=== PATIENT | male | born 1965 | race Caucasian/White ===

== ENCOUNTER 2018-08-17 17:19 | Emergency (ER) | payer BC, OTHER ==
[2018-08-17] MEDS ORDERED: Take Home: Acetaminophen/HYDROcodone 325-5 MG, 5 Tab Pack PO ONE (17:34)
[2018-08-17] MEDS ORDERED: Sodium Chloride 0.9% 10 ML Syringe FLUSH PRN (17:34)
[2018-08-17] MEDS ORDERED: Ondansetron 4 MG/2 ML SDV IVPUSH ONE (17:34)
--- NOTE | 2018-08-17 17:46 | EDM.PDOC ---
ED HPI GENERAL MEDICAL PROBLEM - General Chief Complaint: Upper Extremity Injury/Pain Stated Complaint: Neck and right shoulder pain; fall on ice Time Seen by Provider: 08/17/18 17:23 Source of Information: Reports: Patient, Old Records, RN, RN Notes Reviewed History Limitations: Reports: No Limitations - History of Present Illness INITIAL COMMENTS - FREE TEXT/NARRATIVE: Patient presents to the ED at [facility] for the evaluation of right neck and right shoulder pain after he slipped and fell on the ice. This is not a work related injury. He denies any LOC. No head injury or trauma. Patient states it is difficulty to turn his head to the right. He denies any numbness, tingling, or paresthesia to the right upper extremity. He denies any previous injury or trauma. He has full ROM of the RUE but it is painful. Denies any back pain. No pelvic or abdominal pain. Patient denies any radiation of the pain. Onset: Today, Sudden Onset Date: 08/17/18 Right Neck Pain Score (Numeric/FACES): 8 - Related Data Allergies Allergy/AdvReac Type Severity Reaction Status Date / Time coconu Allergy Rash Uncoded 06/30/17 08:59 dilates the eyes Allergy Other Uncoded 06/30/17 08:59 Home Meds: Home Meds metFORMIN [Glucophage] 500 mg PO BID 06/17/14 [History] traZODone HCl [Trazodone HCl] 50 mg PO 08/17/18 [History] Past Medical History Cardiovascular History: Reports: Afib, High Cholesterol, Hypertension Endocrine/Metabolic History: Reports: Diabetes, Type II Oncologic (Cancer) History: Reports: Other (See Below) Other Oncologic History: leg tumor - Past Surgical History GI Surgical History: Reports: Appendectomy Review of Systems - Review of Systems Review Of Systems: See Below Constitutional: Denies: Chills, Fever Respiratory: Denies: Shortness of Breath, Cough Cardiovascular: Denies: Chest Pain, Palpitations GI/Abdominal: Reports: Nausea. Denies: Abdominal Pain, Vomiting Musculoskeletal: Reports: Neck Pain, Shoulder Pain, Muscle Pain, Muscle Stiffness. Denies: Arm Pain, Back Pain Skin: Reports: No Symptoms Neurological: Denies: Dizziness, Headache, Numbness, Paresthesia, Tingling ED EXAM, GENERAL - Physical Exam Exam: See Below Exam Limited By: No Limitations General Appearance: Alert, No Apparent Distress Neck: Limited Range of Motion, Tender Lateral (Right) Respiratory/Chest: No Respiratory Distress, Lungs Clear, Normal Breath Sounds Cardiovascular: Normal Peripheral Pulses, Regular Rate, Rhythm Peripheral Pulses: 2+: Radial (L), Radial (R) GI/Abdominal: Normal Bowel Sounds, Soft, Non-Tender Back Exam: Normal Inspection, Full Range of Motion Extremities: Normal Capillary Refill, Limited Range of Motion (RUE 2/2 pain). No: Joint Swelling, Arm Pain Neurological: Alert, Oriented Skin Exam: Warm, Dry, Intact, Normal Color Course - Vital Signs Last Recorded V/S: Last Vital Signs Temp 35.8 C 08/17/18 17:20 Pulse 69 08/17/18 17:20 Resp 18 08/17/18 17:20 BP 151/80 H 08/17/18 17:20 Pulse Ox - Orders/Labs/Meds Orders: Active Orders 24 hr Category Date Time Status Sodium Chloride 0.9% [Saline Flush] Med 08/17/18 17:34 Active 10 ml FLUSH ASDIRECTED PRN Peripheral IV Insertion Adult [OM.PC] Routine Oth 08/17/18 17:34 Ordered Medication Orders Sodium Chloride (Saline Flush) 10 ml FLUSH ASDIRECTED PRN PRN Reason: Keep Vein Open Meds: Medications Generic Name Dose Route Start Last Admin Trade Name Freq PRN Reason Stop Dose Admin Sodium Chloride 10 ml 08/17/18 17:34 Saline Flush FLUSH ASDIRECTED PRN Keep Vein Open Discontinued Medications Generic Name Dose Route Start Last Admin Trade Name Freq PRN Reason Stop Dose Admin Hydrocodone Bitart/Acetaminophen 1 packet 08/17/18 17:34 Take Home: Acetam/Hydrocodon 325-5 Mg, 5 Pack PO 08/17/18 17:35 ONETIME ONE Ondansetron HCl 4 mg 08/17/18 17:34 08/17/18 17:52 Zofran IVPUSH 08/17/18 17:35 4 mg ONETIME ONE Administration Orphenadrine Citrate 60 mg 08/17/18 17:34 Norflex IM 08/17/18 17:35 Q12H ONE Orphenadrine Citrate 60 mg 08/17/18 17:50 08/17/18 17:53 Norflex IV 08/17/18 17:51 60 mg Q12H ONE Administration - Radiology Interpretation Free Text/Narrative:: Shoulder, Right: Negative for any acute fracture or dislocation C-Spine: No acute findings in the cervical spine See scanned report in EMR Departure - Departure Time of Disposition: 18:57 Disposition: Home, Self-Care 01 Condition: Good Clinical Impression: Muscle contusion Fall from slipping on ice Qualifiers: Encounter type: initial encounter Qualified Code(s): W00.9XXA - Unspecified fall due to ice and snow, initial encounter Right shoulder injury Qualifiers: Encounter type: initial encounter Qualified Code(s): S49.91XA - Unspecified injury of right shoulder and upper arm, initial encounter Neck strain Qualifiers: Encounter type: initial encounter Qualified Code(s): S16.1XXA - Strain of muscle, fascia and tendon at neck level, initial encounter - Discharge Information *PRESCRIPTION DRUG MONITORING PROGRAM REVIEWED*: Not Applicable *COPY OF PRESCRIPTION DRUG MONITORING REPORT IN PATIENT GUILLERMO: Not Applicable Instructions: Neck Contusion, Muscle Strain, Contusion Referrals: Laverne Koch, [Primary Care Provider] - Forms: ED Department Discharge Additional Instructions: 1. Stay well hydrated and rest 2. Use heating pad to neck/shoulder area 3. Alternate Tylenol/Advil as needed 4. Use muscle relaxers sparingly as these can make you drowsy 5. Follow up with Dr. Koch as symptoms warrant 6. Make go to work as usual - Problem List Review Problem List Initiated/Reviewed/Updated: Yes - My Orders Last 24 Hours: My Active Orders 08/17/18 17:34 Sodium Chloride 0.9% [Saline Flush] 10 ml FLUSH ASDIRECTED PRN Peripheral IV Insertion Adult [OM.PC] Routine - Assessment/Plan Last 24 Hours: My Active Orders 08/17/18 17:34 Sodium Chloride 0.9% [Saline Flush] 10 ml FLUSH ASDIRECTED PRN Peripheral IV Insertion Adult [OM.PC] Routine Assessment:: Muscle contusion Fall on ice Right Shoulder injury Right neck pain 2/2 to fall Plan: Xray and assessment discussed with patient. Will start Flexeril for muscle pain. Use heating pad. Tylenol/Advil. Recommend f/u with PCP as symptoms warrant
[2018-08-17 17:48] VITALS: BP 151/80
--- NOTE | 2018-08-17 18:54 | CR ---
[id number] RAD/RAD Shoulder Right 2V Min Exam: RAD Shoulder Right 2V Min Indication:FALL; RIGHT SHOULDER PAIN. Comparison: No prior imaging for comparison. Discussion: Negative for fracture or dislocation. Apparent linear lucency projecting over the clavicle is consistent with summation artifact from the clavicle and scapula. Mild acromioclavicular osteoarthritis. Impression: As above. Yaakov Donald MD 08/17/18 [id number] Thank you for allowing us to participate in the care of your patient.
--- NOTE | 2018-08-17 18:55 | CR ---
[id number] RAD/RAD Cervical Spine 2-3V Exam: RAD Cervical Spine 2-3V Indication:FALL; INJURY; NECK PAIN. Comparison: No prior imaging for comparison. Discussion: Vertebral bodies are in normal alignment. No radiographically evident fracture or compression deformity. Mild changes of spondylosis. Prevertebral soft tissues are normal in thickness. Lung apices are clear. Impression: No acute findings in the cervical spine. Yaakov Donald MD 08/17/18 [id number] Thank you for allowing us to participate in the care of your patient.
[2018-08-17] MEDS ORDERED: Take Home: Cyclobenzaprine 10 MG Tab, 4 Tab Pack PO ONE (19:00)
== END 2018-08-17 19:22 | disposition home or self-care (01) ==
LOC: VM.ED 17:19
DX: S16.1XXA Strain of muscle, fascia and tendon at neck level, initial encounter (principal); S49.91XA Unspecified injury of right shoulder and upper arm, initial encounter; Z91.018 Allergy to other foods; Z91.09 Other allergy status, other than to drugs and biological substances; E11.9 Type 2 diabetes mellitus without complications; Z79.84 Long term (current) use of oral hypoglycemic drugs; I10 Essential (primary) hypertension; W00.9XXA Unspecified fall due to ice and snow, initial encounter
CPT/HCPCS: 72040; 73030; 96374; 96375; 99284; A9270; J2360; J2405

== ENCOUNTER 2019-06-12 01:15 | Emergency (ER) | payer OTHER ==
[2019-06-12] MEDS ORDERED: Ondansetron 4 MG/2 ML SDV IVPUSH ONE (01:35)
[2019-06-12] MEDS ORDERED: Sodium Chloride 0.9% 10 ML Syringe FLUSH PRN (01:35)
[2019-06-12] MEDS ORDERED: HYDROmorphone 1 MG/ML Syringe IVPUSH ONE (01:36)
[2019-06-12 01:39] VITALS: BP 146/86; PULSE 92
[2019-06-12] MEDS ORDERED: Acetaminophen 500 MG Tab PO ONE (02:15)
[2019-06-12 02:20] LABS: ANION GAP 16.8 mmol/L (10-20); CHLORIDE,CL 105 mmol/L (98-107); SODIUM,NA 141 mmol/L (136-145)
--- NOTE | 2019-06-12 02:37 | EDM.PDOC ---
ED HPI GENERAL MEDICAL PROBLEM - General Chief Complaint: Trauma Stated Complaint: Injury to groin/penis Time Seen by Provider: 06/12/19 01:15 Source of Information: Reports: Patient - History of Present Illness INITIAL COMMENTS - FREE TEXT/NARRATIVE: Pt. states that he was stuck in the groin/lower abdomen by a metal frame. He was attempting to move it with a rachele system, and it swung, striking him in the groin/abdomen. He states that the discomfort was severe enough that it caused him to vomit. Initially the paint was 10/10. Denies any trauma other than to groin/abdomen. He has been able to ambulate. He has not urinated since the incident, and thus cannot assess for hematuria. Onset: Today Onset Date: 06/12/19 Location: Reports: Abdomen Quality: Reports: Ache, Throbbing Severity: Severe lower pelvis, groin, penis Pain Score (Numeric/FACES): 9 - Related Data Allergies Allergy/AdvReac Type Severity Reaction Status Date / Time coconu Allergy Rash Uncoded 06/30/17 08:59 dilates the eyes Allergy Other Uncoded 06/30/17 08:59 Home Meds: Home Meds metFORMIN [Glucophage] 500 mg PO BID 06/17/14 [History] traZODone HCl [Trazodone HCl] 50 mg PO BEDTIME 08/17/18 [History] Atenolol 50 mg PO DAILY 06/12/19 [History] Lisinopril 20 mg PO DAILY 06/12/19 [History] Meloxicam 15 mg PO DAILY 06/12/19 [History] atorvaSTATin Calcium [Atorvastatin Calcium] 40 mg PO DAILY 06/12/19 [History] predniSONE 20 mg PO DAILY 06/12/19 [History] Past Medical History Cardiovascular History: Reports: Afib, High Cholesterol, Hypertension Endocrine/Metabolic History: Reports: Diabetes, Type II Oncologic (Cancer) History: Reports: Other (See Below) Other Oncologic History: leg tumor - Past Surgical History GI Surgical History: Reports: Appendectomy Social & Family History - Family History Family Medical History: Noncontributory Review of Systems - Review of Systems Review Of Systems: See Below Constitutional: Reports: No Symptoms Eyes: Reports: No Symptoms Ears: Reports: No Symptoms Nose: Reports: No Symptoms Mouth/Throat: Reports: No Symptoms Respiratory: Reports: No Symptoms Cardiovascular: Reports: No Symptoms GI/Abdominal: Reports: Abdominal Pain Genitourinary: Reports: Other (testicular pain) Musculoskeletal: Reports: No Symptoms Skin: Reports: No Symptoms Neurological: Reports: No Symptoms Psychiatric: Reports: No Symptoms ED EXAM, GENERAL - Physical Exam Exam: See Below Exam Limited By: No Limitations General Appearance: Alert, WD/WN, No Apparent Distress GI/Abdominal: Normal Bowel Sounds, Soft, Tender Course - Vital Signs Last Recorded V/S: Last Vital Signs Temp 35.3 C 06/12/19 01:15 Pulse 92 06/12/19 01:15 Resp 18 06/12/19 01:15 BP 146/86 H 06/12/19 01:15 Pulse Ox 97 06/12/19 01:15 - Orders/Labs/Meds Orders: Active Orders 24 hr Category Date Time Status Abdomen Pelvis w Cont [CT] Stat Exams 06/12/19 01:33 Taken Sodium Chloride 0.9% [Saline Flush] Med 06/12/19 01:35 Active 10 ml FLUSH ASDIRECTED PRN Peripheral IV Insertion Adult [OM.PC] Routine Oth 06/12/19 01:35 Ordered Medication Orders Sodium Chloride (Saline Flush) 10 ml FLUSH ASDIRECTED PRN PRN Reason: Keep Vein Open Labs: Laboratory Tests 06/12/19 06/12/19 06/12/19 Range/Units 01:28 01:28 01:28 WBC 11.2 H (4.0-10.0) x10^3/uL RBC 5.34 (4.5-6.0) x10^6/uL Hgb 14.8 (14.0-18.0) g/dL Hct 43.9 (40.0-52.0) % MCV 82.2 (78.0-93.0) fL MCH 27.7 (26.0-32.0) pg MCHC 33.7 (32.0-36.0) g/dL RDW Coeff of Abril 14.1 (10.0-15.0) % Plt Count 222 (130-400) x10^3/uL Neut % (Auto) 78.0 (50.0-80.0) % Lymph % (Auto) 15.2 L (25.0-50.0) % [place] % (Auto) 6.4 (2.0-11.0) % Eos % (Auto) 0.2 (0.0-4.0) % Baso % (Auto) 0.2 (0.2-1.2) % PT 10.0 (10.0-12.8) SEC INR 0.9 L (2.0-3.5) Sodium 141 (136-145) mmol/L Potassium 3.8 (3.5-5.1) mmol/L Chloride 105 (98-107) mmol/L Carbon Dioxide 23 (21-32) mmol/L Anion Gap 16.8 (10-20) mmol/L BUN 18 (7-18) mg/dL Creatinine 0.9 (0.70-1.30) mg/dL Est Cr Clr Drug Dosing 98.77 mL/min Estimated GFR (MDRD) > 60 Glucose 170 H (74-106) mg/dL Calcium 9.5 (8.5-10.1) mg/dL Corrected Calcium 9.82 (8.5-10.1) mg/dL Total Bilirubin 0.8 (0.2-1.0) mg/dL AST 21 (15-37) U/L ALT 37 (16-63) U/L Alkaline Phosphatase 89 (46-116) U/L Total Protein 7.0 (6.4-8.2) g/dL Albumin 3.6 (3.4-5.0) g/dL Globulin 3.4 Albumin/Globulin Ratio 1.06 Urine Color (YELLOW) Urine Appearance (CLEAR) Urine pH (5.0-8.0) Ur Specific [place] Urine Protein (NEGATIVE) mg/dL Urine Glucose (UA) (NEGATIVE) mg/dL Urine Ketones (NEGATIVE) mg/dL Urine Occult Blood (NEGATIVE) Urine Nitrite (NEGATIVE) Urine Bilirubin (NEGATIVE) Urine Urobilinogen (0.2) EU/dL Ur Leukocyte Esterase (NEGATIVE) Urine RBC (NOT SEEN) /HPF Urine WBC (NOT SEEN) /HPF Ur Squamous Epith Cells (NEGATIVE) /HPF Urine Bacteria (NEGATIVE) /HPF Urine Mucus (NEGATIVE) /LPF 06/12/19 Range/Units 02:20 WBC (4.0-10.0) x10^3/uL RBC (4.5-6.0) x10^6/uL Hgb (14.0-18.0) g/dL Hct (40.0-52.0) % MCV (78.0-93.0) fL MCH (26.0-32.0) pg MCHC (32.0-36.0) g/dL RDW Coeff of Abril (10.0-15.0) % Plt Count (130-400) x10^3/uL Neut % (Auto) (50.0-80.0) % Lymph % (Auto) (25.0-50.0) % [place] % (Auto) (2.0-11.0) % Eos % (Auto) (0.0-4.0) % Baso % (Auto) (0.2-1.2) % PT (10.0-12.8) SEC INR (2.0-3.5) Sodium (136-145) mmol/L Potassium (3.5-5.1) mmol/L Chloride (98-107) mmol/L Carbon Dioxide (21-32) mmol/L Anion Gap (10-20) mmol/L BUN (7-18) mg/dL Creatinine (0.70-1.30) mg/dL Est Cr Clr Drug Dosing mL/min Estimated GFR (MDRD) Glucose (74-106) mg/dL Calcium (8.5-10.1) mg/dL Corrected Calcium (8.5-10.1) mg/dL Total Bilirubin (0.2-1.0) mg/dL AST (15-37) U/L ALT (16-63) U/L Alkaline Phosphatase (46-116) U/L Total Protein (6.4-8.2) g/dL Albumin (3.4-5.0) g/dL Globulin Albumin/Globulin Ratio Urine Color Yellow (YELLOW) Urine Appearance Clear (CLEAR) Urine pH 5.5 (5.0-8.0) Ur Specific [place] >=1.030 Urine Protein Trace H (NEGATIVE) mg/dL Urine Glucose (UA) 250 H (NEGATIVE) mg/dL Urine Ketones Negative (NEGATIVE) mg/dL Urine Occult Blood Negative (NEGATIVE) Urine Nitrite Negative (NEGATIVE) Urine Bilirubin Small H (NEGATIVE) Urine Urobilinogen 0.2 (0.2) EU/dL Ur Leukocyte Esterase Negative (NEGATIVE) Urine RBC 0-5 (NOT SEEN) /HPF Urine WBC 0-5 (NOT SEEN) /HPF Ur Squamous Epith Cells Rare (NEGATIVE) /HPF Urine Bacteria Not seen (NEGATIVE) /HPF Urine Mucus Moderate H (NEGATIVE) /LPF Meds: Medications Generic Name Dose Route Start Last Admin Trade Name Frelulu PRN Reason Stop Dose Admin Sodium Chloride 10 ml 06/12/19 01:35 Saline Flush FLUSH ASDIRECTED PRN Keep Vein Open Discontinued Medications Generic Name Dose Route Start Last Admin Trade Name Freq PRN Reason Stop Dose Admin Acetaminophen 1,000 mg 06/12/19 02:15 06/12/19 02:25 Tylenol Extra Strength PO 06/12/19 02:16 1,000 mg ONETIME ONE Administration Hydrocodone Bitart/Acetaminophen 1 packet 06/12/19 03:53 Take Home: Acetam/Hydrocodon 325-5 Mg, 5 Pack PO 06/12/19 03:54 ONETIME ONE Hydromorphone HCl 1 mg 06/12/19 01:36 06/12/19 01:45 Dilaudid IVPUSH 06/12/19 01:37 Not Given ONETIME ONE Iopamidol 100 ml 06/12/19 02:48 06/12/19 03:04 Isovue-300 (61%) IVPUSH 06/12/19 02:49 100 ml ONETIME ONE Administration Ondansetron HCl 4 mg 06/12/19 01:35 06/12/19 02:00 Zofran IVPUSH 06/12/19 01:36 4 mg ONETIME ONE Administration - Radiology Interpretation Free Text/Narrative:: CT abdomen and pelvis did not show any evidence of acute abdominal or pelvic trauma. Departure - Departure Time of Disposition: 04:02 Disposition: Home, Self-Care 01 Clinical Impression: Contusion of scrotum and testes, initial encounter - Discharge Information Instructions: Acetaminophen; Hydrocodone tablets or capsules Referrals: PCP,Unobtain [Primary Care Provider] - Forms: ED Department Discharge Additional Instructions: [place] 5/325mg 1 every 4-6 hours as needed for pain. Ibuprofen 200mg 3 tabs every 6 hours as needed for pain Ice groin frequently Off work today and tomorrow if needed. If you decide you want to have an ultrasound, please return to ER, either here or [facility]. - Problem List Review Problem List Initiated/Reviewed/Updated: Yes - My Orders Last 24 Hours: My Active Orders 06/12/19 01:33 Abdomen Pelvis w Cont [CT] Stat 12/10/19 01:35 Sodium Chloride 0.9% [Saline Flush] 10 ml FLUSH ASDIRECTED PRN Peripheral IV Insertion Adult [OM.PC] Routine - Assessment/Plan Last 24 Hours: My Active Orders 06/12/19 01:33 Abdomen Pelvis w Cont [CT] Stat 06/12/19 01:35 Sodium Chloride 0.9% [Saline Flush] 10 ml FLUSH ASDIRECTED PRN Peripheral IV Insertion Adult [OM.PC] Routine Plan: I spoke with Dr. Aguilar at [facility] ER to send the patient for a testicular ultrasound. He accepted the patient, but the patient refused as his groin was beginning to feel much better. Advised the patient continue to ice his testicles. He understands that there is potential pathology to his groin that is not evident on the CT scan but wishes to forgo the ultrasound at this time. He was advised to return to ER if he has worsening discomfort. [place] 5/325mg 1 every 4-6 hours as needed for pain. Do not taking this while driving or operating machinery. He was given a work note for today and tomorrow.
[2019-06-12] MEDS ORDERED: Iopamidol 612 MG/ML 100 ML Bottle IVPUSH ONE (02:48)
[2019-06-12] MEDS ORDERED: Take Home: Acetaminophen/HYDROcodone 325-5 MG, 5 Tab Pack PO ONE (03:53)
--- NOTE | 2019-06-12 07:37 | CT ---
[id number] CT/CT Abdomen Pelvis W IV EXAM: CT Abdomen Pelvis W IV CLINICAL DATA: TRAUMA COMPARISON: CORRELATION IS MADE WITH THE EXAM OF FEBRUARY 19, 2015 FINDINGS: The liver and spleen are unremarkable. The kidneys and adrenals show no abnormality. The aorta and pancreas are within normal limits. There is no bowel distention. There is no bowel wall thickening either. There is no free fluid or free air. There is no adenopathy. The pelvis shows no mass, free fluid, abscess, inflammatory change, or adenopathy. There is evidence of cholecystolithiasis IMPRESSION: NO ACUTE PROCESS. Antonio Mac MD 06/12/19 0736 Thank you for allowing us to participate in the care of your patient.
== END 2019-06-12 04:05 | disposition home or self-care (01) ==
LOC: VM.ED 01:15
DX: S30.22XA Contusion of scrotum and testes, initial encounter (principal); E11.9 Type 2 diabetes mellitus without complications; I10 Essential (primary) hypertension; I48.91 Unspecified atrial fibrillation; E78.00 Pure hypercholesterolemia, unspecified; Z79.84 Long term (current) use of oral hypoglycemic drugs; Z79.899 Other long term (current) drug therapy; Z91.018 Allergy to other foods; Z91.09 Other allergy status, other than to drugs and biological substances; W23.1XXA Caught, crushed, jammed, or pinched between stationary objects, initial encounter
CPT/HCPCS: 74177; 80053; 81001; 85025; 85610; 96374; 99284-25; 99284-GF; A9270-GY; J2405; Q9967

== ENCOUNTER 2020-04-23 18:35 | Emergency (ER) | payer OTHER ==
[2020-04-23] MEDS: Aspirin 81 MG Tab.Chew PO ONE (18:45)
[2020-04-23 18:50] VITALS: PULSE 61
[2020-04-23] MEDS ORDERED: Sodium Chloride 0.9% 10 ML Syringe FLUSH PRN (18:57)
[2020-04-23] MEDS: Nitroglycerin 0.4 MG Tab.SL SL ONE (19:00)
--- NOTE | 2020-04-23 19:19 | CR ---
[id number] RAD/RAD Chest PA or AP 1V EXAM: SINGLE VIEW CHEST. INDICATION: CHEST PAIN SHORTNESS OF BREATH COMPARISON: CORRELATION IS MADE WITH NOVEMBER 04, 2014 FINDINGS: The lungs are clear but hyperaerated The cardiomediastinal contour is enlarged but stable IMPRESSION: AIRWAY DISEASE Antonio Mac MD 04/23/20 [id number] Thank you for allowing us to participate in the care of your patient.
[2020-04-23] MEDS: Morphine 2 MG/ML SYRINGE IVPUSH ONE (19:30)
[2020-04-23] MEDS: Ondansetron 4 MG/2 ML SDV IV ONE (19:30)
[2020-04-23 19:35] LABS: PTT,PARTIAL THROMBOPLSTIN TIME 24.5 SEC (25.6-32.8)
[2020-04-23 19:47] LABS: CHLORIDE,CL 104 mmol/L (98-107); SODIUM,NA 139 mmol/L (136-145)
[2020-04-23 19:48] LABS: ANION GAP 13.7 mmol/L (10-20)
--- NOTE | 2020-04-23 21:33 | EDM.PDOC ---
ED HPI GENERAL MEDICAL PROBLEM - General Chief Complaint: Chest Pain Stated Complaint: CP Time Seen by Provider: 04/23/20 18:50 Source of Information: Reports: Patient History Limitations: Reports: No Limitations - History of Present Illness INITIAL COMMENTS - FREE TEXT/NARRATIVE: Patient comes emergency department today from work with complaints of midsternal chest pain. This patient has an extensive cardiac history. He had his initial LA when he was 18. He had one about 10 years ago as well with some stents. He has some longstanding recurrent angina for which he typically uses nitroglycerin for. He has not used his nitro in over a year. At about 1645 today the patient had the onset of some midsternal chest tightness as well as some radiating pain down his left arm. Not up his job. He had no shortness of breath. He had no diaphoresis. He had a little bit of nausea but no vomiting. No weakness dizziness lightheadedness. No cough or congestion. No fever no chills. No syncope. He does have a history of atrial fibrillation for which he takes metoprolol to control his heart rate and he is on a full dose aspirin twice a day for clot prevention. He has not used his nitroglycerin in over a year. He did not use it today because he does not like to use his nitro when he is at work because it makes him feel funny. No abdominal pain. No hematuria dysuria or urinary frequency. No pain in his legs. No syncope. No Covid exposure no Covid symptoms. Chest Pain Score (Numeric/FACES): 7 - Related Data Allergies Allergy/AdvReac Type Severity Reaction Status Date / Time coconu Allergy Rash Uncoded 04/23/20 18:53 dilates the eyes Allergy Other Uncoded 04/23/20 18:53 Home Meds: Home Meds metFORMIN [Glucophage] 500 mg PO BID 06/17/14 [History] Meloxicam 15 mg PO DAILY 06/12/19 [History] atenoloL [Atenolol] 50 mg PO DAILY 06/12/19 [History] atorvaSTATin Calcium [Atorvastatin Calcium] 40 mg PO DAILY 06/12/19 [History] lisinopriL [Lisinopril] 20 mg PO DAILY 06/12/19 [History] Aspirin 325 mg PO DAILY 04/23/20 [History] Past Medical History Cardiovascular History: Reports: Afib, Angina, High Cholesterol, Hypertension, [place] Musculoskeletal History: Reports: Arthritis Other Musculoskeletal History: Knee pain Endocrine/Metabolic History: Reports: Diabetes, Type II Oncologic (Cancer) History: Reports: Other (See Below) Other Oncologic History: leg tumor - Past Surgical History GI Surgical History: Reports: Appendectomy Social & Family History - Family History Family Medical History: Noncontributory - Tobacco Use Tobacco Use Status *Q: Unknown Ever Used Tobacco ED ROS GENERAL - Review of Systems Review Of Systems: Comprehensive ROS is negative, except as noted in HPI. ED EXAM, GENERAL - Physical Exam Exam: See Below Exam Limited By: No Limitations General Appearance: Alert, WD/WN, No Apparent Distress, Obese Ears: Normal External Exam Nose: Normal Inspection Throat/Mouth: Normal Inspection Head: Atraumatic, Normocephalic Neck: Normal Inspection, Supple Respiratory/Chest: No Respiratory Distress, Lungs Clear, Normal Breath Sounds, No Accessory Muscle Use, Chest Non-Tender Cardiovascular: Normal Peripheral Pulses, Bradycardia, Irregularly Irregular GI/Abdominal: Normal Bowel Sounds, Soft, Non-Tender (Male) Exam: Deferred Rectal (Males) Exam: Deferred Back Exam: Normal Inspection Extremities: Normal Inspection, Pedal Edema (scant trace bilateral none pitting edema) Neurological: Alert, Oriented, Normal Cognition, No Motor/Sensory Deficits Psychiatric: Normal Affect, Normal Mood Skin Exam: Warm, Dry, Intact, Normal Color, No Rash #1 Interpretation EKG Date: 04/23/20 Time: 18:38 Rhythm: A-Fib Rate (Beats/Min): 60 [place]: Normal P-Wave: Absent QRS: Normal ST-T: Normal QT: Normal Comparison: No Change Course - Vital Signs Last Recorded V/S: Last Vital Signs Temp 97.3 F 04/23/20 19:15 Pulse 61 04/23/20 18:38 Resp 16 04/23/20 21:30 BP 116/62 04/23/20 20:43 Pulse Ox 98 04/23/20 21:30 - Orders/Labs/Meds Orders: Active Orders 24 hr Category Date Time Status Peripheral IV Insertion Adult [OM.PC] Stat Oth 04/23/20 18:57 Ordered Labs: Laboratory Tests 04/23/20 04/23/20 04/23/20 Range/Units 19:10 19:10 19:10 WBC 6.8 (4.0-10.0) x10^3/uL RBC 4.92 (4.5-6.0) x10^6/uL Hgb 14.0 (14.0-18.0) g/dL Hct 40.8 (40.0-52.0) % MCV 82.9 (78.0-93.0) fL MCH 28.5 (26.0-32.0) pg MCHC 34.3 (32.0-36.0) g/dL RDW Coeff of Abril 13.8 (10.0-15.0) % Plt Count 185 (130-400) x10^3/uL Neut % (Auto) 62.2 (50.0-80.0) % Lymph % (Auto) 25.1 (25.0-50.0) % Gove % (Auto) 8.2 (2.0-11.0) % Eos % (Auto) 4.1 H (0.0-4.0) % Baso % (Auto) 0.4 (0.2-1.2) % PT 9.9 (9.5-12.3) SEC INR 0.9 L (2.0-3.5) APTT 24.5 L (25.6-32.8) SEC Sodium 139 (136-145) mmol/L Potassium 3.7 (3.5-5.1) mmol/L Chloride 104 (98-107) mmol/L Carbon Dioxide 25 (21-32) mmol/L Anion Gap 13.7 (10-20) mmol/L BUN 18 (7-18) mg/dL Creatinine 0.9 (0.70-1.30) mg/dL Est Cr Clr Drug Dosing TNP Estimated GFR (MDRD) > 60 Glucose 139 H (74-106) mg/dL Calcium 8.6 (8.5-10.1) mg/dL Corrected Calcium 8.92 (8.5-10.1) mg/dL Total Bilirubin 0.8 (0.2-1.0) mg/dL AST 23 (15-37) U/L ALT 38 (16-63) U/L Alkaline Phosphatase 84 (46-116) U/L Troponin I < 0.017 (<=0.056) ng/mL C-Reactive Protein < 0.2 (<=0.9) mg/dL NT-Pro-B Natriuret Pep 317 H (<=125) pg/mL Total Protein 6.6 (6.4-8.2) g/dL Albumin 3.6 (3.4-5.0) g/dL Globulin 3.0 Albumin/Globulin Ratio 1.20 04/23/20 Range/Units 21:00 WBC (4.0-10.0) x10^3/uL RBC (4.5-6.0) x10^6/uL Hgb (14.0-18.0) g/dL Hct (40.0-52.0) % MCV (78.0-93.0) fL MCH (26.0-32.0) pg MCHC (32.0-36.0) g/dL RDW Coeff of Abril (10.0-15.0) % Plt Count (130-400) x10^3/uL Neut % (Auto) (50.0-80.0) % Lymph % (Auto) (25.0-50.0) % [place] % (Auto) (2.0-11.0) % Eos % (Auto) (0.0-4.0) % Baso % (Auto) (0.2-1.2) % PT (9.5-12.3) SEC INR (2.0-3.5) APTT (25.6-32.8) SEC Sodium (136-145) mmol/L Potassium (3.5-5.1) mmol/L Chloride (98-107) mmol/L Carbon Dioxide (21-32) mmol/L Anion Gap (10-20) mmol/L BUN (7-18) mg/dL Creatinine (0.70-1.30) mg/dL Est Cr Clr Drug Dosing Estimated GFR (MDRD) Glucose (74-106) mg/dL Calcium (8.5-10.1) mg/dL Corrected Calcium (8.5-10.1) mg/dL Total Bilirubin (0.2-1.0) mg/dL AST (15-37) U/L ALT (16-63) U/L Alkaline Phosphatase (46-116) U/L Troponin I 0.020 (<=0.056) ng/mL C-Reactive Protein (<=0.9) mg/dL NT-Pro-B Natriuret Pep (<=125) pg/mL Total Protein (6.4-8.2) g/dL Albumin (3.4-5.0) g/dL Globulin Albumin/Globulin Ratio Meds: Medications Discontinued Medications Generic Name Dose Route Start Last Admin Trade Name Freq PRN Reason Stop Dose Admin Aspirin 324 mg 04/23/20 18:58 04/23/20 18:45 Aspirin PO 04/23/20 18:59 324 mg ONETIME ONE Administration Morphine Sulfate 2 mg 04/23/20 19:16 04/23/20 19:30 Morphine IVPUSH 04/23/20 19:17 Not Given ONETIME ONE Nitroglycerin 0.4 mg 04/23/20 18:58 04/23/20 19:00 Nitrostat SL 04/23/20 18:59 0.4 mg ONETIME ONE Administration Ondansetron HCl 4 mg 04/23/20 19:16 04/23/20 19:30 Zofran IV 04/23/20 19:17 Not Given ONETIME ONE Sodium Chloride 10 ml 04/23/20 18:57 Saline Flush FLUSH ASDIRECTED PRN Keep Vein Open - Radiology Interpretation Free Text/Narrative:: Chest x-ray per radiology shows lungs are quite clear but hyper aerated otherwise unremarkable. - Re-Assessments/Exams Free Text/Narrative Re-Assessment/Exam: 04/23/20 Patient was given 324 of oral chewable aspirin. Labs were drawn. EKG shows atrial fibrillation controlled rate in the mid 50s to 60s. No ST elevation or depression when reviewed extemporaneously by myself. Nitroglycerin 1 tablet sublingual with resolution of his chest pain. Laboratory evaluation is rather unremarkable as well as a troponin less than 0.017. This patient presented under the 4-hour time period for his lab draw in his development of chest pain. We will repeat his troponin at the 4-hour level. He was monitored over the next couple of hours. He had no recurrence of his chest pain or his pain to his left arm. His repeat troponin is still negative at 0.02. This is really the presentation of stable angina that he has not had for over a year. He really feels much better and he would like to go home. Which I think is appropriate at this time. We will discharge him home and reiterate the importance of using his nitroglycerin when he develops any angina. If he does not have resolution of his chest pain or his angina after 3 tablets of nitro he is to return to the emergency department immediately. I would like him to follow-up with his primary care by phone tomorrow to let her know that he had recurrence of his angina. He is comfortable with this plan his questions were answered. Departure - Departure Time of Disposition: 21:29 Disposition: Home, Self-Care 01 Clinical Impression: Anginal pain Instructions: Angina, [id number] Referrals: Laverne Koch, [Primary Care Provider] - Forms: ED Department Discharge, ED Return to Work/School Form Additional Instructions: Continue with your previous therapies. Use your Nitro when you develop Angina and if does not resolve after three be seen in the ED. Return to the ED if new or worsening symptoms. Follow up with PCP in a week for recheck. Sepsis Event Note (ED) - Evaluation Sepsis Screening Result: No Definite Risk - Focused Exam Vital Signs: Vital Signs Resp BP Pulse Ox 04/23/20 21:30 16 98 04/23/20 20:43 16 116/62 96 - My Orders Last 24 Hours: My Active Orders 04/23/20 18:57 Peripheral IV Insertion Adult [OM.PC] Stat - Assessment/Plan Last 24 Hours: My Active Orders 04/23/20 18:57 Peripheral IV Insertion Adult [OM.PC] Stat
[2020-04-23 23:53] VITALS: BP 116/62
== END 2020-04-23 21:37 | disposition home or self-care (01) ==
LOC: VM.ED 18:35
DX: I20.9 Angina pectoris, unspecified (principal); I48.91 Unspecified atrial fibrillation; I10 Essential (primary) hypertension; E78.00 Pure hypercholesterolemia, unspecified; M19.90 Unspecified osteoarthritis, unspecified site; E11.9 Type 2 diabetes mellitus without complications; I25.2 Old myocardial infarction; Z79.82 Long term (current) use of aspirin; Z79.899 Other long term (current) drug therapy; Z79.84 Long term (current) use of oral hypoglycemic drugs
CPT/HCPCS: 36415; 71045; 80053; 83880; 84484; 85025; 85610; 85730; 86140; 93005; 93010; 99284; 99285-25; A9270-GY

== ENCOUNTER 2020-11-18 17:33 | Emergency (ER) | payer OTHER ==
--- NOTE | 2020-11-18 17:48 | EDM.PDOC ---
ED HPI GENERAL MEDICAL PROBLEM - General Chief Complaint: Upper Extremity Injury/Pain Stated Complaint: INJURY OF R HAND Time Seen by Provider: 11/18/20 17:35 Source of Information: Reports: Patient History Limitations: Reports: No Limitations - History of Present Illness INITIAL COMMENTS - FREE TEXT/NARRATIVE: Patient states while at work he had approximately 70 pound metal rack come down on his right wrist and forearm approximately 20 minutes ago. He states pain is about a 6 out of 10 throbbing he denies any loss of sensation coldness or discoloration to the extremity he denies any loss of function with the hand or fingers. Most of the pain is around the wrist and the forearm. He has no other complaints. Onset: Sudden Duration: Minutes: Location: Reports: Upper Extremity, Right Quality: Reports: Throbbing Severity: Moderate Worsens with: Reports: None Associated Symptoms: Reports: No Other Symptoms Right Wrist Pain Score (Numeric/FACES): 8 - Related Data Allergies Allergy/AdvReac Type Severity Reaction Status Date / Time coconu Allergy Rash Uncoded 11/18/20 18:08 dilates the eyes Allergy Other Uncoded 11/18/20 18:08 Home Meds: Home Meds metFORMIN [Glucophage] 500 mg PO BID 06/17/14 [History] Meloxicam 15 mg PO DAILY 06/12/19 [History] atenoloL [Atenolol] 50 mg PO DAILY 06/12/19 [History] atorvaSTATin Calcium [Atorvastatin Calcium] 40 mg PO DAILY 06/12/19 [History] lisinopriL [Lisinopril] 20 mg PO DAILY 06/12/19 [History] Aspirin 325 mg PO DAILY 04/23/20 [History] Past Medical History Cardiovascular History: Reports: Afib, Angina, High Cholesterol, Hypertension, [place] Musculoskeletal History: Reports: Arthritis Other Musculoskeletal History: Knee pain Endocrine/Metabolic History: Reports: Diabetes, Type II Oncologic (Cancer) History: Reports: Other (See Below) Other Oncologic History: leg tumor - Past Surgical History GI Surgical History: Reports: Appendectomy Social & Family History - Family History Family Medical History: No Pertinent Family History Review of Systems - Review of Systems Review Of Systems: See Below Constitutional: Reports: No Symptoms Musculoskeletal: Reports: Arm Pain, Muscle Pain Skin: Reports: No Symptoms Neurological: Reports: No Symptoms Psychiatric: Reports: No Symptoms ED EXAM, GENERAL - Physical Exam Exam: See Below Exam Limited By: No Limitations General Appearance: Alert, WD/WN, No Apparent Distress Extremities: Normal Inspection, Normal Range of Motion, Normal Capillary Refill, Other (Exam to the right wrist patient has full range of motion with the wrist all phalanges he has normal FDS FDP positive radius and ulna he has positive tenderness palpation over the snuffbox and mild tenderness palpation over the mid radius and ulna of the forearm full range of motion with the elbow ). No: Non-Tender Neurological: Alert, Oriented, CN II-XII Intact, Normal Cognition, Normal Gait, Normal Reflexes, No Motor/Sensory Deficits Psychiatric: Normal Affect, Normal Mood Skin Exam: Warm, Dry, Intact, Normal Color, No Rash Course - Vital Signs Last Recorded V/S: Last Vital Signs Temp 35.7 C L 11/18/20 17:38 Pulse 63 11/18/20 17:38 Resp 18 11/18/20 17:38 BP 126/71 11/18/20 17:38 Pulse Ox 98 11/18/20 17:38 Patient has full range of motion of the elbow no tenderness palpation over the left and on normal pronation supination X-ray wrist and forearm NAF noted [place] wrap applied to the wrist and forearm rechecked after neurovascularly intact patient was instructed for rice treatment follow-up primary care provider in the next 2 to 3 days if pain persisted - Orders/Labs/Meds Orders: Active Orders 24 hr Category Date Time Status Forearm 2V Rt [CR] Stat Exams 11/18/20 17:39 Taken Wrist Comp Min 3V Rt [CR] Stat Exams 11/18/20 17:39 Taken Departure - Departure Time of Disposition: 18:35 Disposition: Home, Self-Care 01 Condition: Good Clinical Impression: Contusion, wrist, Contusion, forearm - Discharge Information *PRESCRIPTION DRUG MONITORING PROGRAM REVIEWED*: No *COPY OF PRESCRIPTION DRUG MONITORING REPORT IN PATIENT GUILLERMO: No Referrals: Laverne Koch DO [Primary Care Provider] - Forms: ED Department Discharge Sepsis Event Note (ED) - Focused Exam Vital Signs: Vital Signs Temp Pulse Resp BP Pulse Ox 11/18/20 17:38 35.7 C L 63 18 126/71 98 - Problem List & Annotations (1) Contusion, forearm SNOMED Code(s): 61715372 Code(s): S50.10XA - CONTUSION OF UNSPECIFIED FOREARM, INITIAL ENCOUNTER Status: Acute Current Visit: Yes (2) Contusion, wrist SNOMED Code(s): 58885445 Code(s): S60.219A - CONTUSION OF UNSPECIFIED WRIST, INITIAL ENCOUNTER Status: Acute Current Visit: Yes - My Orders Last 24 Hours: My Active Orders 11/18/20 17:39 Forearm 2V Rt [CR] Stat Wrist Comp Min 3V Rt [CR] Stat - Assessment/Plan Last 24 Hours: My Active Orders 11/18/20 17:39 Forearm 2V Rt [CR] Stat Wrist Comp Min 3V Rt [CR] Stat
[2020-11-18 18:06] VITALS: BP 126/71; PULSE 63
--- NOTE | 2020-11-19 07:37 | CR ---
[id number] RAD/RAD Wrist Right 3V Min EXAM: 4 VIEWS RIGHT WRIST. INDICATION: TRAUMA COMPARISON: None. DISCUSSION: No fracture, dislocation or other acute osseous abnormality. IMPRESSION: 1. No acute osseous abnormalities. Oskar Carrion DO 11/19/20 0737 Thank you for allowing us to participate in the care of your patient.
--- NOTE | 2020-11-19 07:43 | CR ---
[id number] RAD/RAD Forearm Right 2V EXAM: 2 VIEWS RIGHT FOREARM. INDICATION: TRAUMA COMPARISON: None. DISCUSSION: No fracture, dislocation or other acute osseous abnormality. IMPRESSION: 1. No acute osseous abnormalities. Oskar Carrion DO 11/19/20 0742 Thank you for allowing us to participate in the care of your patient.
== END 2020-11-18 18:48 | disposition home or self-care (01) ==
LOC: VM.ED 17:33
DX: S50.11XA Contusion of right forearm, initial encounter (principal); S60.211A Contusion of right wrist, initial encounter; E78.00 Pure hypercholesterolemia, unspecified; I10 Essential (primary) hypertension; E11.9 Type 2 diabetes mellitus without complications; Z91.018 Allergy to other foods; Z88.8 Allergy status to other drugs, medicaments and biological substances; Z79.82 Long term (current) use of aspirin; Z79.899 Other long term (current) drug therapy; Z79.84 Long term (current) use of oral hypoglycemic drugs; W20.8XXA Other cause of strike by thrown, projected or falling object, initial encounter
CPT/HCPCS: 73090-RT; 73110-RT; 99283; 99283-25

== ENCOUNTER 2022-09-08 00:39 | Emergency (ER) | payer BC, OTHER ==
[2022-09-08] MEDS ORDERED: Sodium Chloride 0.9% 10 ML Syringe FLUSH PRN (01:06)
[2022-09-08 01:49] LABS: PTT,PARTIAL THROMBOPLSTIN TIME 24.4 SEC (23.6-33.6)
[2022-09-08 02:35] LABS: CHLORIDE,CL 104 mmol/L (98-107); SODIUM,NA 139 mmol/L (136-145)
[2022-09-08 02:40] LABS: ANION GAP 15.7 mmol/L (5-15); ESTIMATED GFR 87 mL/min (>=60)
[2022-09-08 02:58] VITALS: BP 127/84; PULSE 51
== END 2022-09-08 03:00 | disposition home or self-care (01) ==
LOC: VM.ED 00:39
DX: I48.91 Unspecified atrial fibrillation (principal); I10 Essential (primary) hypertension; E78.00 Pure hypercholesterolemia, unspecified; I25.2 Old myocardial infarction; M19.90 Unspecified osteoarthritis, unspecified site; E11.9 Type 2 diabetes mellitus without complications; Z91.018 Allergy to other foods; Z88.8 Allergy status to other drugs, medicaments and biological substances; Z79.84 Long term (current) use of oral hypoglycemic drugs; Z79.82 Long term (current) use of aspirin; Z79.899 Other long term (current) drug therapy; Z79.01 Long term (current) use of anticoagulants
CPT/HCPCS: 71045; 80053; 83735; 83880; 84100; 84443; 84484; 85025; 85610; 85730; 86140; 93005; 93010; 99284; 99285

== ENCOUNTER 2023-12-19 07:07 | Emergency (ER) | payer OTHER, BC ==
[2023-12-19 07:41] VITALS: BP 143/104; PULSE 63
[2023-12-19] MEDS: Acetaminophen 500 MG Tab PO ONE (07:58)
[2023-12-19] MEDS: Ketorolac 15 MG/ML SDV IVPUSH ONE (07:58)
== END 2023-12-19 10:17 | disposition home or self-care (01) ==
LOC: VM.ED 07:07 → SUPCPDRO 07:07 → VM.ED 10:17
DX: M62.830 Muscle spasm of back (principal); I10 Essential (primary) hypertension; I25.2 Old myocardial infarction; E78.00 Pure hypercholesterolemia, unspecified; E11.9 Type 2 diabetes mellitus without complications; Z91.018 Allergy to other foods; Z88.8 Allergy status to other drugs, medicaments and biological substances; Z79.82 Long term (current) use of aspirin; Z79.84 Long term (current) use of oral hypoglycemic drugs; Z79.899 Other long term (current) drug therapy; Z90.49 Acquired absence of other specified parts of digestive tract
CPT/HCPCS: 96374; 96375; 99283; A9270; J1885; J3360

== ENCOUNTER 2024-01-01 06:26 | Emergency (ER) | payer OTHER, BC ==
[2024-01-01 06:59] VITALS: BP 125/86; PULSE 66
[2024-01-01] MEDS: Ketorolac 30 MG/ML SDV IM ONE (07:26)
[2024-01-01] MEDS: Orphenadrine 60 MG/2 ML Inj IM ONE (07:28)
== END 2024-01-01 08:05 | disposition home or self-care (01) ==
LOC: VM.ED 06:26
DX: M62.838 Other muscle spasm (principal); I10 Essential (primary) hypertension; Z79.84 Long term (current) use of oral hypoglycemic drugs; E78.00 Pure hypercholesterolemia, unspecified; M19.90 Unspecified osteoarthritis, unspecified site; E11.9 Type 2 diabetes mellitus without complications; Z90.49 Acquired absence of other specified parts of digestive tract; Z79.82 Long term (current) use of aspirin; Z79.899 Other long term (current) drug therapy; Z91.018 Allergy to other foods; Z88.8 Allergy status to other drugs, medicaments and biological substances
CPT/HCPCS: 96372; 99283; J1885; J2360

== ENCOUNTER 2024-02-19 23:25 | Emergency (ER) | payer BC, OTHER ==
[2024-02-20] MEDS: Nitroglycerin 0.4 MG Tab.SL SL ONE
[2024-02-20 00:06] LABS: BASOPHILS PERCENT AUTO 0.6 % (0.2-1.2); EOSINOPHILS ABSOLUTE AUTO 0.3 x10^3/uL (0.0-0.5); EOSINOPHILS PERCENT AUTO 3.9 % (0.0-4.0); HEMATOCRIT 41.2 % (40.0-52.0); HEMOGLOBIN 13.9 g/dL (14.0-18.0); IMMATURE GRAN ABSOLUTE AUTO 0.03 x10^3/uL (0.00-0.07); LYMPHOCYTES ABSOLUTE AUTO 1.8 x10^3/uL (1.0-4.8); MEAN CORPUSCULAR HEMOGLOBIN 28.7 pg (26.0-32.0); MEAN CORPUSCULAR HGB CONC 33.7 g/dL (32.0-36.0); MEAN CORPUSCULAR VOLUME 84.9 fL (78.0-93.0); MONOCYTES ABSOLUTE AUTO 0.7 x10^3/uL (0.0-0.8); MONOCYTES PERCENT AUTO 9.9 % (2.0-11.0); NEUTROPHILS PERCENT AUTO 59.2 % (50.0-80.0); PLATELET COUNT,PLT 170 x10^3/uL (130-400); RED BLOOD CELL COUNT 4.85 x10^6/uL (4.5-6.0); WHITE BLOOD CELL COUNT,WBC 6.8 x10^3/uL (4.0-10.0)
[2024-02-20 00:07] VITALS: PULSE 61
[2024-02-20 00:30] LABS: A/G RATIO 1.17; ALBUMIN 3.4 g/dL (3.4-5.0); ANION GAP 13.3 mmol/L (5-15); BILIRUBIN TOTAL 0.6 mg/dL (0.2-1.0); CALCIUM 8.9 mg/dL (8.5-10.1); CREATININE 1.1 mg/dL (0.70-1.30); EST CRCL DRUG DOSING (CG) 72.31 mL/min; MAGNESIUM 1.8 mg/dL (1.8-2.4); POTASSIUM,K 4.3 mmol/L (3.5-5.1); PROTEIN TOTAL,TP 6.3 g/dL (6.4-8.2)
[2024-02-20] MEDS: Alum Hydrox/Mag Hydrox/Simeth 30 ML, Lidocaine 2% 15 ML PO ONE (00:51)
[2024-02-20] MEDS ORDERED: Heparin Sodium/0.45% NaCl 25,000 UNITS/500 ML BAG IV SCH ×2 (03:00→03:15)
[2024-02-20] MEDS: Heparin Sodium 5,000 Units/ML Vial IVPUSH ONE (03:00)
[2024-02-20] MEDS: Heparin Sodium/0.45% NaCl 25,000 UNITS/500 ML BAG IV SCH (03:17)
[2024-02-20 03:43] VITALS: BP 148/94
== END 2024-02-20 03:40 | disposition short-term general hospital (02) ==
LOC: VM.ED 23:25
DX: I21.4 Non-ST elevation (NSTEMI) myocardial infarction (principal); I10 Essential (primary) hypertension; I25.2 Old myocardial infarction; E78.00 Pure hypercholesterolemia, unspecified; I48.91 Unspecified atrial fibrillation; E11.9 Type 2 diabetes mellitus without complications; Z90.49 Acquired absence of other specified parts of digestive tract; Z79.84 Long term (current) use of oral hypoglycemic drugs; Z79.899 Other long term (current) drug therapy; Z79.82 Long term (current) use of aspirin; Z91.018 Allergy to other foods; Z91.048 Other nonmedicinal substance allergy status
CPT/HCPCS: 36415; 71045; 80053; 83735; 84484; 85025; 93005; 99285; A9270; J1644